=== PATIENT | female | born 1975 | race Caucasian/White ===

== ENCOUNTER 2017-05-07 13:30 | Emergency (ER) | payer SELFPAY ==
[~2017-05-07] VITALS: Ht 157.5 cm; Wt 94.0 kg
[~2017-05-07 13:30] MED LIST: AZIT250T74 PO; GUAI600 PO; LEVO.125 PO; NORT10CA PO
[2017-05-07 13:35] VITALS: BP 135/60; PULSE 75; RESP 16; TEMP 98.4; O2SAT 99
[2017-05-07] MEDS ORDERED: BENZ100 PO (14:20)
--- NOTE | 2017-05-07 14:21 | PD ---
HPI Chief Complaint: Cold / Flu Symptoms Time Seen by Provider: 13:47 Travel History International Travel<30 days: No Contact w/Intl Traveler<30days: No Traveled to known affect area: No History of Present Illness HPI 41-year-old female presents emergency department for evaluation of sore throat, cough, nasal congestion, fatigue 2 days. Symptom severity is mild. Patient denies fever or chills, chest pain or shortness of breath. Symptoms unrelieved by OTC cough and cold medication. Patient is requesting a work note PFS Past Medical History Medical History: Denies Significant Hx Autoimmune Disease: No Heart Rhythm Problems: No Cancer: No High Cholesterol: No Chest Pain: No Congestive Heart Failure: No Cerebrovascular Accident: No Diabetes: No Diminished Hearing: No Endocrine: Yes Genitourinary: No Headaches: Yes Immune Disorder: No Musculoskeletal: Yes Neurologic: Yes (head injury, orbital injury ) Psychiatric: No Reproductive: Yes (POLYCYSTIC OVARIAN DISEASE, HYSTERECTOMY 2009) Respiratory: No Immunizations Current: Yes Migraines: Yes Seizures: No Thyroid Disease: Yes ?: Not LMP: 6 years ago Tubal Ligation: Yes Past Surgical History Abdominal Surgery: Yes (APPENDECTOMY ) Appendectomy: Yes (1994) Section: Yes (1996 1997) Gynecologic Surgery: Yes (ENDOMETRIOSIS, 2 C-SECTIONS, TOTAL HYSTERECTOMY ) Hysterectomy: Yes Other Surgery: Yes Social History Alcohol Use: Yes (RARELY) Tobacco Use: No Substance Use: Yes Allergies-Medications (Allergen,Severity, Reaction): Coded Allergies: Sulfa (Sulfonamide Antibiotics) (Unverified Allergy, Severe, rash, 05/07/17 ) hydrocodone (Unverified Allergy, Severe, rash, 05/07/17) diatrizoate meglumine (Unverified Allergy, Intermediate, Anaphylaxis, 05/07) DIFFICULTY BREATHING, RASH. gadobenic acid (Unverified Allergy, Intermediate, Anaphylaxis, 05/07/17) DIFFICULTY BREATHING, RASH. gadodiamide (Unverified Allergy, Intermediate, Anaphylaxis, 05/07/17) DIFFICULTY BREATHING, RASH. gadoteridol (Unverified Allergy, Intermediate, Anaphylaxis, 05/07/17) DIFFICULTY BREATHING, RASH. iodixanol (Unverified Allergy, Intermediate, Anaphylaxis, 05/07/17) DIFFICULTY BREATHING, RASH. iohexol (Unverified Allergy, Intermediate, Anaphylaxis, 05/07/17) DIFFICULTY BREATHING, RASH. latex (Unverified Allergy, Intermediate, 05/07/17) Reported Meds & Prescriptions Reported Meds & Active Scripts Active No Active Prescriptions or Reported Medications Review of Systems Except as stated in HPI: all other systems reviewed are Neg General / Constitutional: No: Fever HENT: Positive: Sore Throat, Congestion Respiratory: Positive: Cough Physical Exam Narrative GENERAL: Well-nourished, well-developed patient. SKIN: Focused skin assessment warm/dry. HEAD: Normocephalic. EYES: No scleral icterus. No injection or drainage. THROAT: Posterior pharyngeal erythema. No tonsillar swelling or exudate. Uvula is midline. NECK: Supple, trachea midline. No JVD or lymphadenopathy. No meningismus. CARDIOVASCULAR: Regular rate and rhythm without murmurs, gallops, or rubs. RESPIRATORY: Breath sounds equal bilaterally. No accessory muscle use. GASTROINTESTINAL: Abdomen soft, non-tender, nondistended. MUSCULOSKELETAL: No cyanosis, or edema. BACK: Nontender without obvious deformity. No CVA tenderness. Data Data Last Documented VS Vital Signs Date Time Temp Pulse Resp B/P (MAP) Pulse Ox O2 Delivery O2 Flow Rate FiO2 05/07/17 13:50 Room Air 05/07/17 13:35 98.4 75 16 135/60 (85) 99 MDM Medical Decision Making Medical Screen Exam Complete: Yes Emergency Medical Condition: Yes Differential Diagnosis Upper respiratory infection, bronchitis, pneumonia, influenza Narrative Course 41-year-old female with chief complaint of sore throat, nasal congestion, cough 2 days. Patient's physical exam is reassuring. Her symptoms are mild. Patient be treated for URI Diagnosis Primary Impression: URI (upper respiratory infection) Qualified Codes: J06.9 - Acute upper respiratory infection, unspecified; B97.89 - Other viral agents as the cause of diseases classified elsewhere Referrals: [facility] Departure Forms: Tests/Procedures, Work Release Enter return to work date: May 09, 2017 Additional Instructions: Take [id number] Tylenol or Motrin as needed for pain. Take Tessalon Perles as needed for cough. Follow-up with the [facility] as discussed. Stay well hydrated by drinking plenty of fluids. Scripts Benzonatate (Tessalon Perles) 100 Mg Cap 100 MG PO TID Y for COUGH for 5 Days, CAP 0 Refills Prov: Leedy,Berna N RING STRIKER 05/07/17 Disposition: 01 DISCHARGE HOME Condition: Stable Berna Hernandez May 07, 2017 14:21
== END 2017-05-07 14:41 | disposition home or self-care (01) ==
LOC: PHEFT 13:30
DX: J06.9 Acute upper respiratory infection, unspecified (principal); B97.89 Other viral agents as the cause of diseases classified elsewhere
CPT/HCPCS: 99283

== ENCOUNTER 2017-07-29 09:31 | Emergency (ER) | payer SELFPAY ==
[~2017-07-29] VITALS: Ht 157.5 cm; Wt 96.4 kg
[~2017-07-29 09:31] MED LIST changes: -AZIT250T74 PO; +BENZ100 PO; -GUAI600 PO; -LEVO.125 PO; -NORT10CA PO
[2017-07-29 09:34] VITALS: BP 121/75; PULSE 75; RESP 16; TEMP 98.2; O2SAT 100
--- NOTE | 2017-07-29 10:39 | RADRPT ---
EXAM DATE/TIME: 07/29/2017 10:22 [facility] COMPARISON: No previous studies available for comparison. INDICATIONS : Short of breath, throat feels swollen and tight and is painful MEDICAL HISTORY : Hypothyroidism. scoliosis SURGICAL HISTORY : None. ENCOUNTER: Initial ACUITY: 1 day PAIN SCORE: 8/10 LOCATION: Bilateral neck FINDINGS: Two view examination of the soft tissues of the neck demonstrates the hypopharyngeal airway to have a grossly normal configuration. The trachea is midline. No radiopaque foreign bodies are seen. CONCLUSION: No acute disease. Tonio David MD on July 29, 2017 at 10:37 Board Certified Radiologist. This report was verified electronically.
--- NOTE | 2017-07-29 10:39 | RADRPT ---
EXAM DATE/TIME: 07/29/2017 10:20 [facility] COMPARISON: CHEST SINGLE AP, July 20, 2014, 9:07. INDICATIONS : Short of breath, throat feels tight and swollen and painful MEDICAL HISTORY : Hypothyroidism. scoliosis SURGICAL HISTORY : None. ENCOUNTER: Initial ACUITY: 1 day PAIN SCORE: 8/10 LOCATION: Bilateral chest FINDINGS: The heart and mediastinal structures are normal. The pulmonary vascular pattern is normal. The lungs are clear. Scoliosis of the thoracic spine is noted. CONCLUSION: 1. No acute cardiopulmonary disease. 2. Scoliosis of the thoracic spine. oTnio David MD on July 29, 2017 at 10:35 Board Certified Radiologist. This report was verified electronically.
[2017-07-29] MEDS ORDERED: MAALSUS17 PO (11:48)
--- NOTE | 2017-07-29 11:48 | PD ---
HPI Chief Complaint: ENT Complaint Time Seen by Provider: 10:05 Travel History International Travel<30 days: No Contact w/Intl Traveler<30days: No Traveled to known affect area: No History of Present Illness HPI 41-year-old female patient with history of hypothyroidism, is not currently on any thyroid treatment because she does not have insurance, presents to the ER today because she states that she was eating [employer]ot fries yesterday when she felt like her throat suddenly felt tight like the cy[employer]ot ellington got stuck, and has been having discomfort with swallowing since yesterday. She states that she only had orange juice and water today. She did not want to eat because of the discomfort. She denies any fevers, shortness of breath, vomiting, or any other symptoms. She denies any rashes or facial swelling. Patient denies any new medications or foods. Modifying Factors: None Associated Signs & Symptoms: Discomfort with swallowing, feels like something is stuck in her throat Risk Factors: None PFSH Past Medical History Autoimmune Disease: No Heart Rhythm Problems: No Cancer: No Cardiovascular Problems: Yes (EGK DURING ) High Cholesterol: No Chest Pain: No Congestive Heart Failure: No Cerebrovascular Accident: No Diabetes: No Diminished Hearing: No Endocrine: Yes Genitourinary: No Headaches: Yes Immune Disorder: No Musculoskeletal: Yes Neurologic: Yes (head injury, orbital injury ) Psychiatric: No Reproductive: Yes (POLYCYSTIC OVARIAN DISEASE, HYSTERECTOMY 2009) Respiratory: No Immunizations Current: Yes Migraines: Yes Seizures: No Thyroid Disease: Yes ?: Not Tubal Ligation: Yes Past Surgical History Abdominal Surgery: Yes (APPENDECTOMY ) Appendectomy: Yes (1994) Section: Yes (1996 1997) Gynecologic Surgery: Yes (ENDOMETRIOSIS, 2 C-SECTIONS, TOTAL HYSTERECTOMY ) Hysterectomy: Yes Other Surgery: Yes Social History Alcohol Use: Yes (RARELY) Tobacco Use: No Substance Use: Yes Allergies-Medications (Allergen,Severity, Reaction): Coded Allergies: Sulfa (Sulfonamide Antibiotics) (Unverified Allergy, Severe, rash, ) hydrocodone (Unverified Allergy, Severe, rash, 07/29/17) diatrizoate meglumine (Unverified Allergy, Intermediate, Anaphylaxis, ) DIFFICULTY BREATHING, RASH. gadobenic acid (Unverified Allergy, Intermediate, Anaphylaxis, 07/29/17) DIFFICULTY BREATHING, RASH. gadodiamide (Unverified Allergy, Intermediate, Anaphylaxis, 07/29/17) DIFFICULTY BREATHING, RASH. gadoteridol (Unverified Allergy, Intermediate, Anaphylaxis, 07/29/17) DIFFICULTY BREATHING, RASH. iodixanol (Unverified Allergy, Intermediate, Anaphylaxis, 07/29/17) DIFFICULTY BREATHING, RASH. iohexol (Unverified Allergy, Intermediate, Anaphylaxis, 07/29/17) DIFFICULTY BREATHING, RASH. latex (Unverified Allergy, Intermediate, 07/29/17) Reported Meds & Prescriptions Reported Meds & Active Scripts Active Maalox Maximum Strength Susp (Mag Hydrox/Aluminum Hyd/Simeth) 400 Mg-400 Mg-40 Mg/5 Ml Oral.susp 5 Ml PO QID 1 Days Review of Systems Except as stated in HPI: all other systems reviewed are Neg Physical Exam Narrative GENERAL: Well-developed middle age female patient currently in mild distress. Awake and oriented 3. SKIN: Focused skin assessment warm/dry. HEAD: Atraumatic. Normocephalic. EYES: Pupils equal and round. No scleral icterus. No injection or drainage. ENT: Mucosa pink and moist. No erythema or exudates. No uvular edema. No uvular , palatal, or tonsillar deviation. Airway patent. Nasal turbinates appear normal without nasal blood, purulent drainage or septal hematoma. No drooling. NECK: Trachea midline. No JVD. No palpable masses or goiter. CARDIOVASCULAR: Regular rate and rhythm. No murmur appreciated. RESPIRATORY: No accessory muscle use. Clear to auscultation. Breath sounds equal bilaterally. GASTROINTESTINAL: Abdomen soft, non-tender, nondistended. Hepatic and splenic margins not palpable. MUSCULOSKELETAL: No obvious deformities. No clubbing. No cyanosis. No edema. NEUROLOGICAL: Awake and alert. No obvious cranial nerve deficits. Motor grossly within normal limits. Normal speech. No hoarseness. PSYCHIATRIC: Appropriate mood and affect; insight and judgment normal. Data Data Last Documented VS Vital Signs Date Time Temp Pulse Resp B/P (MAP) Pulse Ox O2 Delivery O2 Flow Rate FiO2 07/29/17 12:05 68 18 135/67 (89) 99 21 07/29/17 09:34 98.2 Orders Orders Group A Rapid Strep Screen (07/29/17 09:53) Chest, Single Ap (07/29/17 10:05) Soft Tissue Neck (07/29/17 ) Strep Culture (Group A) (07/29/17 10:10) Ed Discharge Order (07/29/17 11:39) Mandatory Outpatient Referral (07/29/17 11:48) MDM Medical Decision Making Medical Screen Exam Complete: Yes Emergency Medical Condition: Yes Medical Record Reviewed: Yes Interpretation(s) Last 24 hours Impressions Chest X-Ray 07/29/17 1005 Signed Impressions: Service Date/Time: Saturday, July 29, 2017 10:20 - CONCLUSION: 1. No acute cardiopulmonary disease. 2. Scoliosis of the thoracic spine. Tonio David MD Soft Tissue Neck X-Ray 07/29/17 0000 Signed Impressions: Service Date/Time: Saturday, July 29, 2017 10:22 - CONCLUSION: No acute disease. Tonio David MD Differential Diagnosis Esophageal foreign body versus pharyngeal abrasion versus esophageal abrasion versus esophageal strictures versus strep pharyngitis versus epiglottitis versus mass Narrative Course Strep test is negative and the ER. Chest x-ray did not show any signs of obvious foreign body or other acute processes. Soft tissue neck did not show any signs of epiglottitis or obvious foreign body. I do not palpate any obvious neck mass, no signs of goiter. ENT exam shows no signs of pharyngeal erythema or edema, no signs of obvious trauma. Patient is a clearly seen posterior pharynx and uvula with no edema. She has not having any drooling in the ER, and appears fairly comfortable. Case was discussed with Dr. Goel who is covering gastroenterology at length, and he states that considering that she does not have any signs of airway compromise, is able to swallow liquids and keep it down, he does not feel that she has an emergent issue that needs immediate admission and OR treatment by EGD. However, he does feel that she needs to be evaluated with GI, would like to bring her into the GI office tomorrow, should be in the office, and at that time he can take a look and do possible EGD for further evaluation if necessary. He would keep her on a clear liquid diet today, nothing by mouth after midnight. He also would like me to put the patient on Maalox. A mandatory consult has been placed for her so that she can be seen by GI tomorrow. Patient has been instructed to follow-up tomorrow with GI for evaluation of this issue. She should return for any worsening in symptoms, all worsening discomfort, difficulty swallowing fluids, or new issues as needed. The plan was discussed with the patient and she states understanding. In addition, she has been told that she needs further follow-up with primary care clinic for her thyroid issues. Vital signs are stable in the ER, saturations are normal, and she is not exhibiting any signs of myxedema coma. Diagnosis Primary Impression: Dysphagia Referrals: Nael Ruggiero MD Med/Other Pt SpecificInfo: Prescription(s) given Scripts Mag Hydrox/Aluminum Hyd/Simeth (Maalox Maximum Strength Susp) 400 Mg-400 Mg-40 Mg/5 Ml Oral.susp 5 ML PO QID for 1 Day Prov: José Miguel Alejandra MD 07/29/17 Disposition: 01 DISCHARGE HOME Condition: Stable José Miguel Alejandra MD Jul 29, 2017 11:48
[2017-07-29 12:05] VITALS: BP 135/67
== END 2017-07-29 12:06 | disposition home or self-care (01) ==
LOC: PHED 09:31
DX: R13.10 Dysphagia, unspecified (principal); E03.9 Hypothyroidism, unspecified
CPT/HCPCS: 70360; 71010; 87081; 87880; 99284